=== PATIENT | male | born 1990 | race Caucasian/White ===

== ENCOUNTER 2018-01-12 11:38 | Inpatient (IN) ==
[2018-01-12] MEDS ORDERED: Bisacodyl 10 MG Supp RECTAL PRN (15:05)
[2018-01-12] MEDS ORDERED: Aluminum/Magnesium/Simethacone Susp 30 ML UDC PO PRN (15:05)
[2018-01-12] MEDS ORDERED: Acetaminophen 325 MG Tablet PO PRN (15:05)
[2018-01-12 17:17] LABS: Anion Gap 7 meq/L (5-15); Blood Urea Nitrogen 11 mg/dL (7-18); Calcium 8.6 mg/dL (8.5-10.1); Carbon Dioxide 25.5 meq/L (21.0-32.0); Chloride 109 meq/L (98-107); Cholesterol 140 mg/dL (120-200); Glomerular Filtration Rate Greater Than 89 mL/min (>89); Glucose,Random 91 mg/dL (74-106); Potassium 4.2 meq/L (3.5-5.1); Sodium 141 meq/L (136-145); Triglycerides 74 mg/dL (42-150)
[2018-01-12 17:19] LABS: Chol/HDL Ratio 3.35 Ratio; HDL Cholesterol 41.7 mg/dL (40.0-60.0); LDL Cholesterol,Calculated 84 mg/dL (0-99)
[2018-01-12] MEDS: Senna/Docusate Sodium 8.6/50 MG Tablet PO SCH (20:21)
[2018-01-12 22:07] LABS: Hemoglobin A1c 5.9 % (4.3-6.0)
--- NOTE | 2018-01-13 09:47 | P.HPPSY ---
Provisional Diagnosis Admission Date: January 12, 2018 13:07 [place] I.: 1. Adjustment disorder with depressed mood [place] II.: Deferred Competence Certification of Person's Competence To Provide Express and Informed Consent I have personally examined Jere Baptiste, a person being served at [facility] on, January 13, 2018 0943. Express and informed consent means consent voluntarily given in writing, by a competent person, after sufficient explanation and disclosure of the subject matter involved to enable the person to make a knowing and willful decision without any element of force, fraud, deceit, duress, or other form of constraint or coercion. This person is 18 years of age or older, is not now known to be incompetent to consent to treatment with a guardian advocate, and does not have a health care surrogate or proxy currently making medical treatment decisions. I have found this person to be one of the following: [] Competent to provide express and informed consent, as defined above, for voluntary admission to this facility and is competent to provide express and informed consent for treatment. He/she has the consistent capacity to make well reasoned, willful, and knowing decisions concerning his or her medical or mental health treatment. The person fully and consistently understands the purpose of the admission for examination/placement and is fully capable of personally exercising all rights assured [place] [] Incompetent to provide express and informed consent to voluntary admission, and this is incompetent to provide express and informed consent to treatment. The person must be transferred to involuntary status and a petition for a guardian advocate filed with the Circuit Court. [X] Refusing to provide express and informed consent to voluntary admission but is competent to provide express and informed consent for treatment. The person must be discharged or transferred to involuntary status. Form shall be completed within 24 hours of a person's arrival at the receiving facility and filed in the clinical record of each person: 1. Admitted on a voluntary basis 2. Permitted to provide express and informed consent to his/her own treatment 3. Allowed to transfer from involuntary to voluntary status 4. Prior to permitting a person to consent to his or her own treatment after having been previously found incompetent to consent to treatment. History of Present Illness Capacity: Has capacity Chief Complaint: Villanueva act History of Present Illness: Mr. Baptiste is a 27-year-old male with no reported previous psychiatric diagnoses who presents in transfer from [facility] under a Villanueva act. Documentation from outside hospital reviewed. Patient presented there saying that "stressful situations that made him come in have suicidal ideations today. Patient states he has a plan to hang himself. No attempt made." Reviewing the electronic medical record, I note the patient was briefly admitted under Dr. Altamirano in 2017. Patient seen and examined with nurse. Chart reviewed. Case discussed with nursing staff and with counselor. No behavioral issues noted overnight. No evidence of any suicidality or homicidality on the inpatient unit. On my examination today, the patient says that Thursday or Thursday night he had a beer or 2 and was "reminiscing." He says that he was thinking about his mother as it was the anniversary of her passing. He says "I got sad." He denies that he had any actual suicidal ideation but says that he told the outside hospital he had some because "I just needed help." He denies any suicidal or homicidal ideation plan presently and says that he wants to live for himself. He denies any sleep or appetite disturbance. Denies any hopeless or worthless feelings. Denies any low energy or poor concentration. He does describe some mild anhedonia. He is future oriented. I can elicit no hypomanic or manic symptoms. He denies any audiovisual hallucinations. I can elicit no paranoia, no ideas of reference, no feelings of thought manipulation or other delusional material. The remainder of the psychiatric ROS is negative. The patient is requesting discharge from the inpatient psychiatric unit today if possible. He has no acute physical complaints. Past psychiatric history: The patient denies a history of psychiatric diagnosis. He denies a history of inpatient or outpatient psychiatric treatment. He denies a history of suicide attempts. He denies a history of violent behavior. Family history: The patient denies a family history of serious mental illness or suicide. Chemical dependency history: The patient says that he drinks 1-2 beers a day. He denies a history of heavier drinking. He denies a history of blackouts, DTs or seizures. He does admit that he has tried cannabis in the past. He denies any use of cocaine, benzodiazepines or heroin. Social history: The patient rents a room by himself. He is single with no children. He has a grade 10 education. 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 He denies any history. Denies any legal history. Denies any access to guns or firearms. Denies any cheondoism or spiritual beliefs. Denies any history of trauma including physical, verbal or sexual abuse. Past medical history: The patient denies any history of medical problems. Medications: The patient denies any home medications. Allergies: The patient denies any allergies. Patient reports that there is no one who can provide collateral information. - Inpatient Certification I certify that the inpatient services were ordered in accordance with Medicare regulations governing the order. This includes certification that hospital inpatient services are reasonable and necessary and in the case of services not specified as inpatient-only under 42 CFR 419.22(n), that they are appropriately provided as inpatient services in accordance to with the 2-midnight benchmark under 43 CFR 412.3(e) I certify that inpatient psychiatric hospital services are medically necessary. Evaluation and treatment and/or diagnostic testing are expected to improve the patient's condition. The patient needs on a daily basis, active treatment furnished directly by or requiring the supervision of inpatient psychiatric facility personnel. Estimated Total Length of Stay (Days): 3 (2-3) Plans for Post Hospital Care: Not yet determined Review of Systems All other systems reviewed negative except as stated in HPI PMFSH - History History Provided By: Patient - Tobacco History Second Hand Smoke Exposure: No Smoking Status: Never smoker - Alcohol History How Often Do You Have a Drink Containing Alcohol: 2 to 4 times a month - Substance Use History Substance History: Active Abuse - Substance Use Type Marijuana Status: Active Route Used: Inhalation Frequency: daily, a blunt Last Used: 01/11/18 Reason for Use: Calm Down - Immunization History Tetanus Immunization: Unsure Hx Influenza Vaccine This Season: No Medications and Allergies Active Medications: Active Medications Acetaminophen (Tylenol) 650 mg PO Q4H PRN PRN Reason: Pain 1-5 or Temp >101F Al Hydrox/Mg Hydrox/Simethicone (Mag-Al Plus Susp Liq) 30 ml PO Q6H PRN PRN Reason: DYSPEPSIA Al Hydroxide/Mg Hydroxide (Milk Of Magnesia Liq) 30 ml PO Q12H PRN PRN Reason: Mild Constipation Bisacodyl (Dulcolax Supp) 10 mg RECTAL DAILY PRN PRN Reason: SEVERE CONSITIPATION Diphenhydramine HCl (Benadryl) 50 mg PO Q6H PRN PRN Reason: For mild anxiety and/or EPS Lactulose (Lactulose Liq) 30 ml PO DAILY PRN PRN Reason: SEVERE CONSITIPATION Nicotine (Habitrol 21 Mg Patch.24 Hr) 1 patch T-DERMAL DAILY PRN PRN Reason: NICOTINE CRAVINGS Patch Removal (Remove Old Patch) 1 each T-DERMAL DAILY PRN PRN Reason: NICOTINE CRAVINGS Senna/Docusate Sodium (Darline-Colace) 1 tab PO BID LESLEY Last Admin: 01/12/18 20:21 Dose: Not Given Sennosides (Senokot) 17.2 mg PO Q12H PRN PRN Reason: Moderate Constipation Allergies Allergy/AdvReac Type Severity Reaction Status Date / Time No Known Allergies Allergy Uncoded 07/04/16 12:51 Home Medications Medication Instructions Recorded Confirmed Type No Known Home Medications 01/12/18 01/12/18 History Results - Labs CBC & Chem 7: 01/12/18 16:34 Labs: Laboratory Results - last 24 hr 01/12/18 01/12/18 16:34 16:34 Sodium 141 Potassium 4.2 Chloride 109 H Carbon Dioxide 25.5 Anion Gap 7 BUN 11 Creatinine 0.79 Estimated GFR Greater than 89 Random Glucose 91 Hemoglobin A1c 5.9 Calcium 8.6 Triglycerides 74 Cholesterol 140 LDL Cholesterol, Calc 84 HDL Cholesterol 41.7 Cholesterol/HDL Ratio 3.35 CBC reveals mild normocytic anemia with a hemoglobin of 12.8. White blood cell count and platelet count are within normal limits. CMP reveals mild hypocalcemia at 8.1. Renal and hepatic function are within normal limits as are electrolytes. Tylenol, salicylate and alcohol level are all undetectable. Urine toxicology is not available for my review. Exam Vital signs: Vital Signs 01/12/18 13:11 01/13/18 06:26 Temperature 98.7 F 97.2 F L Pulse Rate 56 L 66 Respiratory Rate 16 16 Blood Pressure 120/62 104/63 Pulse Oximetry 96 98 Intake & Output 01/12/18 01/13/18 01/13/18 18:59 06:59 18:59 Weight 83 kg Other: Weight On Admission 83 kg Narrative: Physical examination was completed by ED provider at outside hospital. On my examination today, the patient appears to be in no acute physical distress. No motor abnormalities noted. No signs of intoxication or withdrawal noted. Labs and vital signs reviewed. Mental Status Examination Appearance: Appropriate Consciousness: Alert Orientation: x4 Motor Activity: Normal gait Speech: Unremarkable Language: Adequate Fund of Knowledge: Adequate Attention and Concentration: Adequate Memory: Unremarkable (Grossly intact on clinical exam) Mood: Other (Denies ongoing issues with mood) Affect: Other (Seems mildly dysphoric) Thought Process & Associations: Intact Thought Content: Appropriate Hallucination Type: None Delusion Type: None Suicidal Ideation: No Suicidal Plan: No Suicidal Intention: No Homicidal Ideation: No Homicidal Plan: No Homicidal Intention: No Mental Status Exam Remarks: Insight and judgment are presently unclear Assessment and Plan - Assessment (1) Adjustment disorder with depressed mood Code(s): F43.21 - Adjustment disorder with depressed mood Status: Acute - Plan Plan: 27-year-old male with psychiatric history as detailed above who presents in transfer from outside hospital under a Villanueva act. On my examination today, the patient says that he was experiencing transient dysphoria prior to presenting to outside hospital secondary to anniversary of mother's passing. Although the patient reports that this dysphoria is resolved now and he denies suicidal ideation he does seem somewhat dysphoric still. There are also some inconsistencies in the patient's history, for example he denies a history of psychiatric hospitalizations but was hospitalized here in the past as per the EMR. Absent reassuring collateral I think it is prudent to observe the patient at least overnight on the inpatient unit to ensure that there are no ongoing impairments in safety. Admit inpatient. Patient declining to consent for voluntary admission. Continue to observe under Villanueva act. Patient declining any psychotropic medications at this time, nor is it clear that any are indicated. I will initiate a CIWA scale with Ativan for the management of any withdrawal. Thiamine and folate. Seizure and fall precautions. Vitals every shift. Counselor to see. Collateral information if possible. Disposition planning. Estimated length of stay: 2-3 days. Justification for Continued Inpatient Stay: See above Discharge Planning: To be determined Request Healthcare Surrogate/Guardian Advocate?: No
[2018-01-13] MEDS ORDERED: LORazepam 1 MG Tablet PO PRN (09:57)
[2018-01-13] MEDS: Folic Acid 1 MG Tablet PO SCH (12:00)
[2018-01-13] MEDS: Multivitamin/Minerals Therapeutic Tablet PO SCH (12:00)
[2018-01-13 16:52] VITALS: PULSE 61; O2SAT 100
[2018-01-13] MEDS: Senna/Docusate Sodium 8.6/50 MG Tablet PO SCH (18:32)
[2018-01-14 05:46] VITALS: BP 120/71; RESP 16; TEMP 97.3
[2018-01-14] MEDS: Multivitamin/Minerals Therapeutic Tablet PO SCH (09:56)
[2018-01-14] MEDS: Folic Acid 1 MG Tablet PO SCH (09:56)
--- NOTE | 2018-01-14 10:40 | P.DSPSY ---
Psychiatry Discharge Summary Inpatient Psychiatric care?: Yes Advance Directives: No Mental Health Advance Directive: No Health Care Proxy: No - Admission Admission Date: January 12, 2018 13:07 - Admission Diagnosis (1) Adjustment disorder with depressed mood Code(s): F43.21 - Adjustment disorder with depressed mood Brief History: Mr. Baptiste is a 27-year-old male with no reported previous psychiatric diagnoses who presents in transfer from [facility] under a Villanueva act. Documentation from outside hospital reviewed. Patient presented there saying that "stressful situations that made him come in have suicidal ideations today. Patient states he has a plan to hang himself. No attempt made." Reviewing the electronic medical record, I note the patient was briefly admitted under Dr. Altamirano in 2017. Patient seen and examined with nurse. Chart reviewed. Case discussed with nursing staff and with counselor. No behavioral issues noted overnight. No evidence of any suicidality or homicidality on the inpatient unit. On my examination today, the patient says that Thursday or Thursday night he had a beer or 2 and was "reminiscing." He says that he was thinking about his mother as it was the anniversary of her passing. He says "I got sad." He denies that he had any actual suicidal ideation but says that he told the outside hospital he had some because "I just needed help." He denies any suicidal or homicidal ideation plan presently and says that he wants to live for himself. He denies any sleep or appetite disturbance. Denies any hopeless or worthless feelings. Denies any low energy or poor concentration. He does describe some mild anhedonia. He is future oriented. I can elicit no hypomanic or manic symptoms. He denies any audiovisual hallucinations. I can elicit no paranoia, no ideas of reference, no feelings of thought manipulation or other delusional material. The remainder of the psychiatric ROS is negative. The patient is requesting discharge from the inpatient psychiatric unit today if possible. He has no acute physical complaints. Past psychiatric history: The patient denies a history of psychiatric diagnosis. He denies a history of inpatient or outpatient psychiatric treatment. He denies a history of suicide attempts. He denies a history of violent behavior. Family history: The patient denies a family history of serious mental illness or suicide. Chemical dependency history: The patient says that he drinks 1-2 beers a day. He denies a history of heavier drinking. He denies a history of blackouts, DTs or seizures. He does admit that he has tried cannabis in the past. He denies any use of cocaine, benzodiazepines or heroin. Social history: The patient rents a room by himself. He is single with no children. He has a grade 10 education. 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 He denies any history. Denies any legal history. Denies any access to guns or firearms. Denies any yarsani or spiritual beliefs. Denies any history of trauma including physical, verbal or sexual abuse. Past medical history: The patient denies any history of medical problems. Medications: The patient denies any home medications. Allergies: The patient denies any allergies. Patient reports that there is no one who can provide collateral information. Tobacco Use In Past 30 Days: No How Often Do You Have a Drink Containing Alcohol: 2 to 4 times a month Hospital Course: Patient was admitted to a locked, inpatient psychiatric unit. Appropriate precautions were in place throughout patient's hospital stay. Patient was seen and examined on the unit by psychiatry and also visited by counselor. There was no evidence of any suicidality or homicidality on the inpatient unit. There was no evidence of self-care deficit. Patient maintained that there was no one from whom we could obtain collateral information. On the day of discharge: Patient seen and examined with counselor and nurse. Chart reviewed. Case discussed with nursing staff. No behavioral issues noted overnight. Case discussed with counselor. On my examination today, the patient is requesting discharge from the inpatient psychiatric unit today. He denies any suicidal or homicidal ideation, intent or plan. I can elicit no depressive or hypomanic/manic symptoms. He denies any further negative reminiscences of his mother's passing. He denies any audiovisual hallucinations. I can elicit no delusional material. He has no physical complaints. He is agreeable to outpatient follow-up including chemical dependency evaluation and grief counseling. Weighing the relevant factors and based on the available evidence, I home economist consumer service that the patient no longer meets criteria to retain under observation under the Villanueva act. There is no evidence of imminent risk of harm to self or others, nor is there evidence of self-care deficit to support involuntary psychiatric hospitalization. I will therefore arrange for the patient's discharged today with psychiatric follow-up as arranged by counselor. Patient is also to follow up with primary care. I have counseled the patient to abstain from substances of abuse. I have counseled the patient regarding warning signs for need to return to the psychiatric emergency room as part of a general safety plan. - Discharge Discharge Date: 01/14/18 - Discharge Diagnosis (1) Adjustment disorder with depressed mood Diagnosis: Principal (Resolved) Code(s): F43.21 - Adjustment disorder with depressed mood Status: Resolved Discharge Disposition: Home - Discharge Instructions Discharge Diet: Regular Diet Activities You Can Perform: Weight Bearing As Tolerat - Discharge Time <= 30 minutes Mental Status Examination Appearance: Appropriate Consciousness: Alert Orientation: x4 Motor Activity: Normal gait, Other (No motor abnormalities noted. No signs of withdrawal noted.) Speech: Unremarkable Language: Adequate Fund of Knowledge: Adequate Attention and Concentration: Adequate Memory: Unremarkable (Grossly intact on clinical exam) Mood: Appropriate Affect: Appropriate Thought Process & Associations: Intact Thought Content: Appropriate Hallucination Type: None Delusion Type: None Suicidal Ideation: No Suicidal Plan: No Suicidal Intention: No Homicidal Ideation: No Homicidal Plan: No Homicidal Intention: No Mental Status Exam Remarks: Insight and judgment are perhaps fair. Discharge/Advance Care Plan - Results Vital Signs: Last Vital Signs Temp 97.3 F L 01/14/18 05:43 Pulse 61 01/14/18 05:43 Resp 16 01/14/18 05:43 BP 120/71 01/14/18 05:43 Pulse Ox 100 01/14/18 05:43 Lab Results: Laboratory Results Hemoglobin A1c 5.9 % (4.3-6.0) 01/12/18 16:34 Triglycerides 74 mg/dL (42-150) 01/12/18 16:34 Cholesterol 140 mg/dL (120-200) 01/12/18 16:34 LDL Cholesterol, Calc 84 mg/dL (0-99) 01/12/18 16:34 HDL Cholesterol 41.7 mg/dL (40.0-60.0) 01/12/18 16:34 Summary of Procedures: None done Pending Results: None - Medications Number of antipsychotic medications at discharge: 0 - Discharge Care Plan Goals to Promote Your Health: * To prevent worsening of your condition and complications * To maintain your health at the optimal level Directions to Meet Your Goals: Take your medications as prescribed Follow your dietary instruction Follow activity as directed Keep your appointments as scheduled Take your immunizations and boosters as scheduled If your symptoms worsen call your PCP, if no PCP go to Urgent Care Center or Emergency Room For 24/11 questions related to your inpatient stay or results of tests pending at discharge, please contact Dr. Justin Glass MD at [phone] Smoking is Dangerous to Your Health. Avoid second hand smoking
== END 2018-01-14 16:30 | disposition home or self-care (01) ==
LOC: H270 13:07
PROVIDERS: ADMIT Psychiatry & Neurology Psychiatry; ATTEND Psychiatry & Neurology Psychiatry